=== PATIENT | male | born 1950 | race Caucasian/White ===

== ENCOUNTER 2017-12-12 15:15 | Inpatient (IN) | END 2017-12-13 18:42 | disposition home health service (06) | DRG 988 ==

== ENCOUNTER 2018-01-06 13:19 | Day surgery (SDC) | END 2018-01-06 17:46 | disposition home or self-care (01) ==

== ENCOUNTER 2018-02-04 14:53 | Day surgery (SDC) | END 2018-02-04 19:52 | disposition home or self-care (01) ==